=== PATIENT | female | born 1995 | race American Indian/Alaskan Native ===

== ENCOUNTER 2020-05-08 22:48 | Emergency (ER) | payer SELFPAY ==
[2020-05-08 23:38] VITALS: BP 116/69
--- NOTE | 2020-05-09 00:20 | XRay Report ---
XR foot 3+V LT INDICATION: Left small toe pain. COMPARISON: None available. FINDINGS: There is a moderately displaced fracture of the midshaft of the fifth proximal phalanx with lateral d isplacement of the distal fracture fragment. There is no other acute fracture. Signer Name: Dung Hill MD Signed: 05/09/2020 12:15 AM Workstation Name: [id number]
--- NOTE | 2020-05-09 00:25 | Emergency Department Report ---
ED Lower Extremity HPI - General Chief Complaint: Extremity Injury, Lower Stated Complaint: TOE INJURY Time Seen by Provider: 05/09/20 00:17 Source: patient Mode of arrival: Ambulatory Limitations: No Limitations - History of Present Illness Initial Comments: The patient was evaluated in the emergency department for symptoms described in the history of present illness. He/she was evaluated in the context of the global COVID-19 pandemic, which necessitated consideration that the patient might be at risk for infection with the virus that causes COVID-19. Institutional protocols and algorithms that pertain to the evaluation of patients at risk for COVID-19 are in a state of rapid change based on information released by regulatory bodies including the CDC and federal and state organizations. These policies and algorithms were followed during the patient's care in the emergency department. Please note that these policies, procedures and recommendations changed on a rapid basis. 24-year-old female presents to the emergency room for left small toe injury after bumping into a bed leg. Patient reports increased pain with movement or walking. Patient denies any other injury. -: This evening Injury: Toes: Left (Fifth digit) Type of Injury: blunt Place: home Severity scale (0 -10): 9 Improves With: immobilization Worsens With: movement, palpation Associated Symptoms: swelling, numbness - Related Data Previous Rx's Medication Instructions Recorded Last Taken Type Ibuprofen [Motrin 800 MG tab] 800 mg PO Q8HR PRN #30 tablet 05/09/20 Unknown Rx Allergies Allergy/AdvReac Type Severity Reaction Status Date / Time No Known Allergies Allergy Unverified 05/08/20 23:35 ED Review of Systems ROS: Stated complaint: TOE INJURY Other details as noted in HPI Comment: All other systems reviewed and negative ED Past Medical Hx - Past Medical History Previous Medical History?: Yes Hx Asthma: Yes - Surgical History Past Surgical History?: Yes Additional Surgical History: Tonsils. Adenoids - Social History Smoking Status: Never Smoker Substance Use Type: Marijuana - Medications Home Medications: Home Medications Medication Instructions Recorded Confirmed Last Taken Type Ibuprofen [Motrin 800 MG tab] 800 mg PO Q8HR PRN #30 tablet 05/09/20 Unknown Rx ED Physical Exam - General Limitations: No Limitations General appearance: alert, in no apparent distress - Head Head exam: Present: atraumatic, normocephalic - ENT ENT exam: Present: mucous membranes moist - Neck Neck exam: Present: normal inspection - Expanded Lower Extremity Exam Left Knee exam: Present: normal inspection Lower Leg exam: Present: normal inspection Ankle exam: Present: normal inspection Foot/Toe exam: Present: tenderness, swelling, deformity. Absent: full ROM - Back Exam Back exam: Present: normal inspection - Neurological Exam Neurological exam: Present: alert, oriented X3, normal gait - Psychiatric Psychiatric exam: Present: normal affect, normal mood - Skin Skin exam: Present: warm, dry, intact, normal color. Absent: rash ED Course Vital Signs 05/08/20 23:32 Temperature 98.0 F Pulse Rate 85 Respiratory 18 Rate Blood Pressure 116/69 O2 Sat by Pulse 97 Oximetry ED Lower Extremity MDM - Radiology Data Radiology results: report reviewed Patient: YANNICK SOTELO MR#: [id number] 8 : 1995 Acct:[id number] Age/Sex: 24 / F ADM Date: 05/08/20 Loc: ED Attending Dr: Ordering Physician: TONI LEMOS MD Date of Service: 05/08/20 Procedure(s): XR foot 3+V LT Accession Number(s): [id number] cc: ED MD AMINTA Fluoro Time In Minutes: XR foot 3+V LT INDICATION: Left small toe pain. COMPARISON: None available. FINDINGS: There is a moderately displaced fracture of the midshaft of the fifth proximal phalanx with lateral displacement of the distal fracture fragment. There is no other acute fracture. Signer Name: Dung Hill MD Signed: 05/09/2020 12:15 AM Workstation Name: [id number] Transcribed By: HOLLY Dictated By: Dung Hill MD Electronically Authenticated By: Dung Hill MD Signed Date/Time: 05/09/2014 DD/ TD/TT: - Medical Decision Making 24-year-old female presents to the emergency room for left small toe injury after bumping into a bed leg. Patient reports increased pain with movement or walking. Patient denies any other injury. X-ray shows a moderate displaced left distal metatarsal. Patient is given [place] for pain management will be discharged home on ibuprofen. Critical care attestation.: If time is entered above; I have spent that time in minutes in the direct care of this critically ill patient, excluding procedure time. ED Disposition Clinical Impression: Fracture of fifth toe, left, closed Qualifiers: Encounter type: initial encounter Qualified Code(s): S92.502A - Displaced unspecified fracture of left lesser toe(s), initial encounter for closed fracture Disposition: TO HOME OR SELFCARE Is pt being admited?: No Does the pt Need Aspirin: No Condition: Stable Instructions: Toe Fracture, [id number] Additional Instructions: Fracture left fifth toe. Take pain medication and follow-up with your orthopedic provider. Prescriptions: Ibuprofen [Motrin 800 MG tab] 800 mg PO Q8HR PRN #30 tablet PRN Reason: Pain , Severe (7-10) Referrals: PRIMARY CARE, [Primary Care Provider] - 3-5 Days FAM MASON MD [Staff Physician] - 3-5 Days
[2020-05-09] MEDS ORDERED: HYDROcodone/ACETAMINOPHEN 7.5-325MG TAB PO ONE (00:26)
== END 2020-05-09 01:10 | disposition home or self-care (01) ==
LOC: ED 22:48
DX: S92.502A Displaced unspecified fracture of left lesser toe(s), initial encounter for closed fracture (principal); J45.909 Unspecified asthma, uncomplicated; F12.10 Cannabis abuse, uncomplicated; Z79.1 Long term (current) use of non-steroidal anti-inflammatories (NSAID); X58.XXXA Exposure to other specified factors, initial encounter; Y93.89 Activity, other specified; Y92.89 Other specified places as the place of occurrence of the external cause; Y99.8 Other external cause status
CPT/HCPCS: 99283